=== PATIENT | female | born 1950 | race Asian ===

== ENCOUNTER 2016-06-10 07:19 | Day surgery (SDC) | payer OTHER ==
[2016-06-08 12:45] VITALS: BMI 29.2
[2016-06-10] MEDS ORDERED: PROPOFOL 20 ML ONE (07:22)
[2016-06-10 08:53] VITALS: TEMP 100
[2016-06-10 09:51] VITALS: PULSE 85
[2016-06-10 09:53] VITALS: BP 160/83
== END 2016-06-10 09:25 | disposition home or self-care (01) ==
LOC: FASU-ENDO 07:19
PROVIDERS: ATTEND Internal Medicine Gastroenterology
PROC: 0DJD8ZZ Inspection of Lower Intestinal Tract, Via Natural or Artificial Opening Endoscopic (ICD-10-PCS; principal; 2016-06-10 08:25)
DX: Z86.010 Personal history of colon polyps (principal); K57.30 Diverticulosis of large intestine without perforation or abscess without bleeding